=== PATIENT | female | born 1950 | race Caucasian/White ===

== ENCOUNTER → 2017-01-11 | Outpatient (CLI) | payer OTHER ==
--- NOTE | 2017-01-11 08:49 | KCIC ---
ACUTE ABDOMEN SERIES History: Generalized abdominal pain, changes in bowels, symptoms since July worse the last 3 weeks Comparison: None. Findings: Single view of the chest and single supine and upright views of the abdomen are submitted. There is no infiltrate, pleural fluid, pneumothorax. Cardiac silhouette is considered within normal limits given technique. There is no free air. There is an overall nonobstructive bowel gas pattern. There is variable retained stool throughout the colon. Impression: 1. There is variable retained stool throughout the colon, nonobstructive bowel gas pattern. Electronically signed by: Navneet Narayanan MD (01/11/2017 8:45 AM)
== END | disposition home or self-care (01) ==
LOC: KCIC 08:09
PROVIDERS: ATTEND Family Medicine
DX: R10.84 Generalized abdominal pain (principal)
CPT/HCPCS: 74022

== ENCOUNTER → 2020-01-03 | Outpatient (CLI) | payer MEDICARE ==
[~2020-01-03] MED LIST: REGADENOSON 0.4 MG/5 ML DISP.SYRIN. IV ONE
--- NOTE | 2020-01-03 11:55 | CARD ---
MR#: [id number] Date of Study: 01/03/2020 Ordering Physician: ASHWIN ELLIS, Referring Physician: ASHWIN ELLIS Tech: Naomy Rizo RDCS APPROVED REPORT EXAM: Two-dimensional and M-mode echocardiogram with Doppler and color Doppler. Other Information Quality : Good INDICATION Pre-Op 2D DIMENSIONS RVDd2.6 (2.9-3.5cm)Left Atrium(2D)3.6 (1.6-4.0cm) IVSd0.8 (0.7-1.1cm)Aortic Root(2D)2.7 (2.0-3.7cm) LVDd4.3 (3.9-5.9cm)LVOT Diameter1.8 (1.8-2.4cm) PWd0.8 (0.7-1.1cm)LVDs3.1 (2.5-4.0cm) FS (%) 27.4 %SV44.0 ml LVEF(%)53.5 (>50%) Aortic Valve AoV Peak Farhat.126.1cm/sAoV VTI25.5cm AO Peak GR.6.4mmHgLVOT Peak Farhat.95.3cm/s AO Mean GR.3mmHgAVA (VMAX)1.95cm2 RJ (VTI)2.10cm2 Mitral Valve MV E Yogjdlos00.3cm/sMV DECEL XMUY058vq MV A Xjrvuutt80.1cm/sE/A Ratio1.1 Tricuspid Valve TR P. Pztgtrmm863re/sRAP WIEMHZRX3ehLp TR Peak Gr.85fdNtLUMY74kaRf Pulmonary Vein S1 Cdqyfrlb72.9cm/sD2 Yylwirgi38.4cm/s LEFT VENTRICLE The left ventricle is normal size. There is normal left ventricular wall thickness. The left ventricu lar systolic function is normal and the ejection fraction is within normal range. The Ejection Fracti on is 55%. There is normal LV segmental wall motion. The left ventricular diastolic function and fill ing is normal for age. RIGHT VENTRICLE The right ventricle is normal size. The right ventricular systolic function is normal. ATRIA The left atrium size is normal. The right atrium is mildly dilated. The interatrial septum is intact with no evidence for an atrial septal defect or patent foramen ovale as noted on 2-D or Doppler imagi ng. AORTIC VALVE The aortic valve is calcified but opens well. Doppler and Color Flow revealed no significant aortic r egurgitation. There is no significant aortic valvular stenosis. MITRAL VALVE The mitral valve is calcified but opens well. There is no evidence of mitral valve prolapse. There is no mitral valve stenosis. Doppler and Color-flow revealed trace mitral regurgitation. TRICUSPID VALVE The tricuspid valve is normal in structure and function. Doppler and Color Flow revealed mild tricusp id regurgitation. The PA pressure was estimated at 29 mmHg. There is no tricuspid valve stenosis. PULMONIC VALVE The pulmonic valve is not well visualized. Doppler and Color Flow revealed trace pulmonic valvular re gurgitation. There is no pulmonic valvular stenosis. GREAT VESSELS The aortic root is normal in size. The ascending aorta is normal in size. The IVC is normal in size a nd collapses >50% with inspiration. PERICARDIAL EFFUSION There is no evidence of significant pericardial effusion. Critical Notification Critical Value: No <Conclusion> The left ventricular systolic function is normal and the ejection fraction is within normal range. Th e Ejection Fraction is 55%. There is normal LV segmental wall motion. Signed by : Nikko Schmitz, Electronically Approved : 01/03/2020 11:54:50
--- NOTE | 2020-01-03 13:26 | RAD ---
MR#: [id number] Date of Study: 01/03/2020 Ordering Physician: ASHWIN ELLIS, Referring Physician: JOSUÉ VANN Tech: RT Radha Lawrence) (N) APPROVED REPORT Test Type: Pharmacological Stress Nurse/Tech: Isa Omalley R.N. Test Indications: c/p Cardiac History: No known cardiac Medications: See Electronic Medical Record Medical History: See Electronic Medical Record Resting ECG: SR Resting Heart Rate: 61 bpm Resting Blood Pressure: 121/60mmHg Pretest Chest Pain: No chest pain Nurse/Tech Notes S1S2, lungs CTA Consent: The procedure was explained to the patient in lay terms. Informed consent was witnessed. Tr eout was entered into [facility]. History and Stress Test performed by RT Radha Lawrence) (N) Pharm. Details Pharmacologic stress testing was performed using 0.4mg per 5ml of regadenoson given intravenously ove r 7-10 seconds. Stress Symptoms SOB, chest tightness scale 5/10 that resolved by the end of the recovery period. h/a POST EXERCISE Reason for Termination: Infusion complete Max HR: 105 bpm Max Blood Pressure: 111/47mmHg Blood Pressure response to exercise: Normal blood pressure response during stress. Heart Rate response to exercise: wnl Chest Pain: Yes. see above note Arrhythmia: Yes. ST Change: No. INTERPRETATION Stress EKG Conclusion: The resting EKG shows a sinus rhythm with mild nonspecific ST segment changes. The stress EKG showed no significant changes from baseline. No EKG evidence of stress-induced ischemia. Imaging Protocol IMAGE PROTOCOL: Rest Tc-99m/stress Tc-99m 1 day Rest: Stress: Viability: Radiopharm.Tc99m DskiacjqgLg33n Sestamibi Dose10.4mCi 33mCi Duration 15min. 10min. Img Date 01/03/2020 01/03/2020 Inj-Img Umnx18vmv. 60min. Rest Admin Site:IV - Right AntecubitalAdministrator:RT Radha Lawrence)(N) Stress Admin Site: IV - Right AntecubitalAdministrator: Camila Quintero, NMTCB, ARRT (R)(N) STRESS DATA End Diast. Vol.63.0mlAv. Heart Rate76.0bpm End Syst. Vol.5.0mlCO Index BSA0.0L/min Myocardial Tppb444.0gEject. Zfoocosd37.0% Stress Rates Pk. Fill Rate3.99EDV/secLVtime Pk. Fill 110.49msec Pk. Empty Rate4.88ESV/secLVtime Pk. Nvlwz328.15msec 07/26 Pk. Fill2.40EDV/sec Stress Scores Regional WT0.00Summed WT0.00 Regional WM0.00Summed WM1.00 LV Perfusion The stress scans show no significant defects. The rest scans show no significant defects. Nuclear imaging shows no reversible ischemia or infarct. Wall Motion Normal left ventricular systolic function with no wall motion abnormalities, an ejection fraction of greater than 70% and a TID of 0.88. LV Perf. Quant 17 Seg. SSS0.00 17 Seg. SRS1.00 17 Seg. SDS0.00 Stress Defect Extent (% LAD)0.00Rest Defect Extent (% LAD)0.00Rev. Defect Extent (% LAD)0.00 Stress Defect Extent (% LCX) 0.00Rest Defect Extent (% LCX)7.50Rev. Defect Extent (% LCX)0.00 Stress Defect Extent (% RCA)0.00Rest Defect Extent (% RCA)0.00Rev. Defect Extent (% RCA)0.00 Stress Defect Extent (% BRIAN)0.00Rest Defect Extent (% BRIAN)1.70Rev. Defect Extent (% BRIAN)0.00 Conclusion 1. No EKG evidence of stress-induced ischemia. 2. Nuclear imaging shows no reversible ischemia or infarct. 3. Normal left ventricular systolic function with no regional wall motion abnormalities, and ejection fraction of greater than 70% and a TID of 0.88. 4. Low risk Lexiscan nuclear stress test. Signed by : Keith Taylor MD Electronically Approved : 01/03/2020 13:25:54
== END ==
LOC: NM 10:20
PROVIDERS: ATTEND Internal Medicine Cardiovascular Disease
DX: Z01.810 Encounter for preprocedural cardiovascular examination (principal); I08.3 Combined rheumatic disorders of mitral, aortic and tricuspid valves
CPT/HCPCS: 78452; 93017; 93306; A9500; J2785

== ENCOUNTER → 2021-09-01 | Outpatient (CLI) | payer MEDICARE ==
--- NOTE | 2021-09-01 17:17 | CARD ---
MR#: [id number] Date of Study: 09/01/2021 Ordering Physician: ASHWIN ELLIS, Referring Physician: ASHWIN ELLIS, Tech: Mary Carmen Briscoe, [facility] APPROVED REPORT EXAM: Two-dimensional and M-mode echocardiogram with Doppler and color Doppler. Other Information Quality : AverageHR: 66bpm INDICATION Dyspnea 2D DIMENSIONS Left Atrium(2D)2.7 (1.6-4.0cm)IVSd0.9 (0.7-1.1cm) Aortic Root(2D)2.8 (2.0-3.7cm)LVDd4.6 (3.9-5.9cm) LVOT Diameter2.1 (1.8-2.4cm)PWd0.9 (0.7-1.1cm) LVDs2.8 (2.5-4.0cm)FS (%) 37.8 % SV65.1 ml Aortic Valve AoV Peak Farhat.110.8cm/sAoV VTI24.2cm AO Peak GR.4.9mmHgLVOT Peak Farhat.88.5cm/s LVOT VTI 17.99cmAO Mean GR.3mmHg RJ (VMAX)2.83ow7VFH (VTI)2.48cm2 Mitral Valve MV E Xjjijplr21.2cm/sMV DECEL RKPA188uv MV A Oqtzztzo62.5cm/sMV E Mean Gr.0mmHg MV OZQ03uiF/A Ratio1.0 MVA (PHT)4.18cm2 TDI E/Lateral E'6.6E/Medial E'6.0 Pulmonary Valve PV Peak Nmhqejjg73.3cm/sPV Peak Grad.2mmHg Tricuspid Valve TR P. Puyizlpf163vk/sRAP JHUBZWNC9mkEq TR Peak Gr.22ytHmIVEN58ntPj Pulmonary Vein S1 Uphykoit86.0cm/sD2 Qcuqyvfs64.3cm/s PVa oucipjbf92fkok LEFT VENTRICLE The left ventricle is normal size. There is normal left ventricular wall thickness. The left ventricu lar systolic function is normal and the ejection fraction is within normal range. The Ejection Fracti on is 50-55%. There is normal LV segmental wall motion. The left ventricular diastolic function and f illing is normal for age. RIGHT VENTRICLE The right ventricle is normal size. There is normal right ventricular wall thickness. The right ventr icular systolic function is normal. ATRIA The left atrium size is normal. The right atrium is borderline dilated. The interatrial septum is int act with no evidence for an atrial septal defect or patent foramen ovale as noted on 2-D or Doppler i maging. AORTIC VALVE The aortic valve is normal in structure and function. Doppler and Color Flow revealed no significant aortic regurgitation. There is no significant aortic valvular stenosis. Calculated aortic valve area is 2.02 cm2 with maximum pressure gradient of 6 mmHg and mean pressure gradient of 3 mmHg. MITRAL VALVE The mitral valve is normal in structure and function. There is no evidence of mitral valve prolapse. There is no mitral valve stenosis. Doppler and Color-flow revealed trace mitral regurgitation. TRICUSPID VALVE The tricuspid valve is normal in structure and function. Doppler and Color Flow revealed trace tricus pid regurgitation with an estimated PAP of 33 mmHg. There is no tricuspid valve stenosis. PULMONIC VALVE The pulmonic valve is not well visualized. Doppler and Color Flow revealed trace to mild pulmonic blake vular regurgitation. GREAT VESSELS The aortic root is normal in size. The IVC is normal in size and collapses >50% with inspiration. PERICARDIAL EFFUSION There is no evidence of significant pericardial effusion. Critical Notification Critical Value: No <Conclusion> The left ventricle is normal size. The left ventricular systolic function is normal and the ejection fraction is within normal range. The Ejection Fraction is 50-55%. Doppler and Color Flow revealed no significant aortic regurgitation. There is no significant aortic valvular stenosis. Doppler and Color-flow revealed trace mitral regurgitation. Doppler and Color Flow revealed trace tricuspid regurgitation with an estimated PAP of 33 mmHg. Signed by : Keith Taylor MD Electronically Approved : 09/01/2021 17:16:23
== END ==
LOC: ECHO 10:39
PROVIDERS: ATTEND Internal Medicine Cardiovascular Disease
DX: I37.1 Nonrheumatic pulmonary valve insufficiency (principal); R06.09 Other forms of dyspnea
CPT/HCPCS: 93306; C8929

== ENCOUNTER 2021-12-05 10:49 | Emergency (ER) | payer MEDICARE ==
[~2021-12-05] VITALS: Ht 167.6 cm; Wt 55.5 kg
[2021-12-05] MEDS ORDERED: IOHEXOL 350 MG/ML 100 ML VIAL. IV ONE (12:00)
[2021-12-05] MEDS ORDERED: CONTRAST GIVEN. MC PRN (12:00)
--- NOTE | 2021-12-05 12:05 | EKG ---
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
--- NOTE | 2021-12-05 12:05 | RAD ---
EXAM: Chest, single view. HISTORY: Chest pain. COMPARISON: None. FINDINGS: A frontal view of the chest is obtained. There is no infiltrate, pleural effusion or pneumo thorax. The heart is normal in size. There is calcified biapical pleural plaque. IMPRESSION: No acute pulmonary finding. Electronically signed by: Maranda Alvarado MD (12/05/2021 12:03 PM) [id number]
[2021-12-05 12:13] LABS: BASO # 0.1 x10^3/uL (0.0-0.2); BASO % 1 % (0-3); EOS # 0.1 x10^3/uL (0.0-0.7); EOS % 1 % (0-3); HEMATOCRIT 39.1 % (36.0-47.0); HEMOGLOBIN 13.1 g/dL (12.0-15.5); LYMPH # 1.2 x10^3/uL (1.0-4.8); LYMPH % 14 % (24-48); MEAN CORPUSCULAR HEMOGLOBIN 30 pg (25-35); MEAN CORPUSCULAR HGB CONC 33 g/dL (31-37); MEAN CORPUSCULAR VOLUME 91 fL (79-100); MONO # 0.8 x10^3/uL (0.0-1.1); MONO % 9 % (0-9); NEUT # 6.8 x10^3/uL (1.8-7.7); NEUT % 76 % (31-73); PLATELET COUNT 167 x10^3/uL (140-400); RED BLOOD COUNT 4.33 x10^6/uL (3.50-5.40); RED CELL DISTRIBUTION WIDTH 13.3 % (11.5-14.5)
[2021-12-05 12:23] LABS: CALCIUM 9.2 mg/dL (8.5-10.1); CREATININE 0.8 mg/dL (0.6-1.0); GFR 70.7; POTASSIUM 3.9 mmol/L (3.5-5.1)
[2021-12-05 12:29] LABS: ALBUMIN 3.5 g/dL (3.4-5.0); ALBUMIN/GLOBULIN RATIO 0.9 (1.0-1.7); TOTAL BILIRUBIN 0.9 mg/dL (0.2-1.0); TOTAL PROTEIN 7.3 g/dL (6.4-8.2)
--- NOTE | 2021-12-05 12:59 | RAD ---
EXAM: Head CT without contrast. HISTORY: Dizziness. TECHNIQUE: Computed tomographic images of the head were obtained without contrast. *One or more of the following individualized dose reduction techniques were utilized for this examina tion: 1. Automated exposure control. 2. Adjustment of the mA and/or kV according to patient size. 3. Use of iterative reconstruction technique. COMPARISON: None. FINDINGS: There is no acute or subacute extra-axial or intraparenchymal hemorrhage. There is no mass effect or midline shift. There is no hydrocephalus. There are areas of decreased attenuation within the cerebral white matter, nonspecific and likely rel ated to chronic small vessel disease. There is a small focus of hyperdensity within the anterior limb of the left internal capsule, also likely due to chronic white matter disease. The visualized portions of the orbits, paranasal sinuses and mastoid air cells are unremarkable. No s uspicious calvarial lesion is seen. IMPRESSION: No acute intracranial finding. MRI is more sensitive for acute infarction. Electronically signed by: Maranda Alvarado MD (12/05/2021 12:57 PM) [id number]
--- NOTE | 2021-12-05 13:04 | RAD ---
CTA Chest with contrast: Clinical History: Reason: Chest pain with SOA. Axial helical images of the chest were obtained after the administration of 100 cc of IV Omnipaque 35 0 and timed appropriately for a pulmonary arterial study. Conventional axial reconstruction was perf ormed in addition to coronal, sagittal and bilateral oblique MIP (maximum intensity projection). Thi s study was ordered to detect possible pulmonary embolism. There are no filling defects to suggest pulmonary embolism. The lungs and pleural margins are clear. There is no mediastinal or hilar lymphadenopathy. The thoracic aorta appears normal. Impression: 1. No evidence of pulmonary embolism. 2. No significant findings. PQRS Compliance Statement: One or more of the following individualized dose reduction techniques were utilized for this examinat ion: 1. Automated exposure control 2. Adjustment of the mA and/or kV according to patient size 3. Use of iterative reconstruction technique Electronically signed by: Rudy Hightower III, MD (12/05/2021 1:02 PM) [facility]
--- NOTE | 2021-12-05 13:41 | PHYS DOC ---
Past Medical History Past Medical History: Cancer, Hypothyroid Additional Past Medical Histor: bladder ca, osteoporosis, reynauds, tendonitis Past Surgical History: Cancer Surgery, , Tubal ligation, Other Additional Past Surgical Histo: breast biopsy, cystoscopy, bladder tumor removal x2 Smoking Status: Never Smoker Alcohol Use: None General Adult EDM: Chief Complaint: CHEST PAIN HPI: HPI: Patient is a 71-year-old female who presents today with chest pain. Patient states that around 1015 this morning while at [employer] she experienced substernal chest pain that radiated to the right side of her neck and her right ear, she stated that she did have shortness of breath with the pain as well as nausea, she said she had the pain for approximately 30 to 45 minutes and then the pain went away. Patient currently is pain-free. Patient states she has a past medical history of bladder cancer for which she is followed on outpatient basis with her urologist, she also has seen Dr. Lange in the past for similar episode that she had approximately 2 to 3 years ago. She said she has had an echocardiogram recently which was negative for any acute process. Patient states that she was recently seen by her primary care physician and diagnosed with tendinitis in her left foot she was placed in a walking boot and instructed to take it easy over the next couple of days and not do a lot of walking. Patient states she has decreased her activity and been sitting in her recliner with her feet up more frequently over the last couple of days. Review of Systems: Review of Systems: Constitutional: Denies fever or chills. [] Eyes: Denies change in visual acuity. [] HENT: Denies nasal congestion or sore throat. [] Respiratory: Denies cough or shortness of breath. [] Cardiovascular: Chest pain denies edema. [] GI: Denies abdominal pain, nausea, vomiting, bloody stools or diarrhea. [] : Denies dysuria. [] Musculoskeletal: Denies back pain or joint pain. [] Integument: Denies rash. [] Neurologic: Denies headache, focal weakness or sensory changes. [] Endocrine: Denies polyuria or polydipsia. [] Lymphatic: Denies swollen glands. [] Psychiatric: Denies depression or anxiety. [] Heart Score: C/O Chest Pain: Yes HEART Score for Chest Pain: HEART Score for Chest Pain Response (Comments) Value History Moderately Suspicious 1 ECG Normal 0 Age > 65 2 Risk Factors No Risk Factors 0 Troponin < Normal Limit 0 Total 3 Risk Factors: Risk Factors: DM, Current or recent (<one month) smoker, HTN, HLP, family history of CAD, obesity. Risk Scores: Score 0 - 3: 2.5% MACE over next 6 weeks - Discharge Home Score 4 - 6: 20.3% MACE over next 6 weeks - Admit for Clinical Observation Score 7 - 10: 72.7% MACE over next 6 weeks - Early Invasive Strategies Current Medications: Current Medications Medications (Trade) Dose Ordered Sig/Lacy Start Time Stop Time Status Last Admin Dose Admin Info (CONTRAST GIVEN -- Rx MONITORING) 1 each PRN DAILY PRN 12/05/21 12:00 12/07/21 11:59 Iohexol (Omnipaque 350 Mg/ml) 100 ml 1X ONCE 12/05/21 12:00 12/05/21 12:01 DC 12/05/21 12:00 100 ML Allergies: Allergies: Allergies Coded Allergies Type Severity Reaction Last Updated Verified Penicillins Allergy Intermediate Rash 01/03/20 Yes Sulfa (Sulfonamide Antibiotics) Allergy Intermediate Rash 01/03/20 Yes calamine Allergy Intermediate Rash 01/03/20 Yes meloxicam Allergy Intermediate Rash 01/03/20 No prednisone Allergy Intermediate 01/03/20 No naproxen Adverse Reaction Intermediate FLUSHING 01/03/20 No Physical Exam: PE: Constitutional: Well developed, well nourished, no acute distress, non-toxic appearance. [] HENT: Normocephalic, atraumatic, bilateral external ears normal, oropharynx moist, no oral exudates, nose normal. [] Eyes: PERRLA, EOMI, conjunctiva normal, no discharge. [] Neck: Normal range of motion, no tenderness, supple, no stridor. [] Cardiovascular:Heart rate regular rhythm, no murmur [] Lungs & Thorax: Bilateral breath sounds clear to auscultation [] Abdomen: Bowel sounds normal, soft, no tenderness, no masses, no pulsatile masses. [] Skin: Warm, dry, no erythema, no rash. [] Back: No tenderness, no CVA tenderness. [] Extremities: Left foot in a walking boot, peripheral pulses are 2+ no edema noted in her legs Neurologic: Alert and oriented X 3, normal motor function, normal sensory function, no focal deficits noted. [] Psychologic: Affect normal, judgement normal, mood normal. [] Current Patient Data: Labs: Laboratory Tests Test 12/05/21 11:03 12/05/21 14:15 White Blood Count 9.0 x10^3/uL Red Blood Count 4.33 x10^6/uL Hemoglobin 13.1 g/dL Hematocrit 39.1 % Mean Corpuscular Volume 91 fL Mean Corpuscular Hemoglobin 30 pg Mean Corpuscular Hemoglobin Concent 33 g/dL Red Cell Distribution Width 13.3 % Platelet Count 167 x10^3/uL Neutrophils (%) (Auto) 76 % Lymphocytes (%) (Auto) 14 % Monocytes (%) (Auto) 9 % Eosinophils (%) (Auto) 1 % Basophils (%) (Auto) 1 % Neutrophils # (Auto) 6.8 x10^3/uL Lymphocytes # (Auto) 1.2 x10^3/uL Monocytes # (Auto) 0.8 x10^3/uL Eosinophils # (Auto) 0.1 x10^3/uL Basophils # (Auto) 0.1 x10^3/uL Sodium Level 143 mmol/L Potassium Level 3.9 mmol/L Chloride Level 104 mmol/L Carbon Dioxide Level 29 mmol/L Anion Gap 10 Blood Urea Nitrogen 23 mg/dL Creatinine 0.8 mg/dL Estimated GFR (Cockcroft-Gault) 70.7 BUN/Creatinine Ratio 29 Glucose Level 91 mg/dL Calcium Level 9.2 mg/dL Total Bilirubin 0.9 mg/dL Aspartate Amino Transf (AST/SGOT) 16 U/L Alanine Aminotransferase (ALT/SGPT) 15 U/L Alkaline Phosphatase 63 U/L Troponin I High Sensitivity 5 ng/L < 4 ng/L HU-Cbg-L-Type Natriuretic Peptide 346 pg/mL Total Protein 7.3 g/dL Albumin 3.5 g/dL Albumin/Globulin Ratio 0.9 Current Medications Medications (Trade) Dose Ordered Sig/Lacy Route PRN Reason Start Time Stop Time Status Last Admin Dose Admin Iohexol (Omnipaque 350 Mg/ml) 100 ml 1X ONCE IV 12/05/21 12:00 12/05/21 12:01 DC 12/05/21 12:00 Info (CONTRAST GIVEN -- Rx MONITORING) 1 each PRN DAILY PRN MC SEE COMMENTS 12/05/21 12:00 12/05/21 15:03 DC Laboratory Tests Test 12/05/21 11:03 White Blood Count 9.0 x10^3/uL (4.0-11.0) Red Blood Count 4.33 x10^6/uL (3.50-5.40) Hemoglobin 13.1 g/dL (12.0-15.5) Hematocrit 39.1 % (36.0-47.0) Mean Corpuscular Volume 91 fL (79-100) Mean Corpuscular Hemoglobin 30 pg (25-35) Mean Corpuscular Hemoglobin Concent 33 g/dL (31-37) Red Cell Distribution Width 13.3 % (11.5-14.5) Platelet Count 167 x10^3/uL (140-400) Neutrophils (%) (Auto) 76 % (31-73) H Lymphocytes (%) (Auto) 14 % (24-48) L Monocytes (%) (Auto) 9 % (0-9) Eosinophils (%) (Auto) 1 % (0-3) Basophils (%) (Auto) 1 % (0-3) Neutrophils # (Auto) 6.8 x10^3/uL (1.8-7.7) Lymphocytes # (Auto) 1.2 x10^3/uL (1.0-4.8) Monocytes # (Auto) 0.8 x10^3/uL (0.0-1.1) Eosinophils # (Auto) 0.1 x10^3/uL (0.0-0.7) Basophils # (Auto) 0.1 x10^3/uL (0.0-0.2) Sodium Level 143 mmol/L (136-145) Potassium Level 3.9 mmol/L (3.5-5.1) Chloride Level 104 mmol/L (98-107) Carbon Dioxide Level 29 mmol/L (21-32) Anion Gap 10 (6-14) Blood Urea Nitrogen 23 mg/dL (7-20) H Creatinine 0.8 mg/dL (0.6-1.0) Estimated GFR (Cockcroft-Gault) 70.7 BUN/Creatinine Ratio 29 (6-20) H Glucose Level 91 mg/dL (70-99) Calcium Level 9.2 mg/dL (8.5-10.1) Total Bilirubin 0.9 mg/dL (0.2-1.0) Aspartate Amino Transferase (AST) 16 U/L (15-37) Alanine Aminotransferase (ALT) 15 U/L (14-59) Alkaline Phosphatase 63 U/L (46-116) Troponin I High Sensitivity 5 ng/L (4-50) WQ-Gru-O-Type Natriuretic Peptide 346 pg/mL (0-124) H Total Protein 7.3 g/dL (6.4-8.2) Albumin 3.5 g/dL (3.4-5.0) Albumin/Globulin Ratio 0.9 (1.0-1.7) L Laboratory Tests 12/05/21 11:03 Laboratory Tests 12/05/21 11:03 Vital Signs: Vital Signs Date Time Temp Pulse Resp B/P (MAP) Pulse Ox O2 Delivery O2 Flow Rate FiO2 12/05/21 14:55 78 21 140/63 (88) 99 12/05/21 14:20 74 20 124/65 (84) 99 12/05/21 14:00 72 16 130/66 (87) 99 12/05/21 13:24 75 18 142/71 (94) 100 Room Air 12/05/21 13:00 92 14 137/75 (95) 99 12/05/21 12:00 72 13 107/58 (74) 96 12/05/21 11:09 98.2 78 16 124/67 (86) 100 Room Air 98.2 Vital Signs Date Time Temp Pulse Resp B/P (MAP) Pulse Ox O2 Delivery O2 Flow Rate FiO2 12/05/21 13:24 75 18 142/71 (94) 100 Room Air 12/05/21 11:09 98.2 98.2 EKG: EKG: EKG done at [address] Juárez at 11:00 shows sinus rhythm with a leftward axis deviation at a heart rate of 79 with a WA interval of 122 ms with a QTC of 395 ms no STEMI [] Radiology/Procedures: Radiology/Procedures: REASON: dizziness PROCEDURE: CT HEAD WO CONTRAST EXAM: Head CT without contrast. HISTORY: Dizziness. TECHNIQUE: Computed tomographic images of the head were obtained without contras t. *One or more of the following individualized dose reduction techniques were utilized for this examination: 1. Automated exposure control. 2. Adjustment of the mA and/or kV according to patient size. 3. Use of iterative reconstruction technique. COMPARISON: None. FINDINGS: There is no acute or subacute extra-axial or intraparenchymal hemorrhage. There is no mass effect or midline shift. There is no hydrocephalus. There are areas of decreased attenuation within the cerebral white matter, nonspecific and likely related to chronic small vessel disease. There is a small focus of hyperdensity within the anterior limb of the left internal capsule, also likely due to chronic white matter disease. The visualized portions of the orbits, paranasal sinuses and mastoid air cells are unremarkable. No suspicious calvarial lesion is seen. IMPRESSION: No acute intracranial finding. MRI is more sensitive for acute infarction. Electronically signed by: Maranda Alvarado MD (12/05/2021 12:57 PM) [id number] REASON: Chest pain with SOA PROCEDURE: CT ANGIOGRAPHY CHEST CTA Chest with contrast: Clinical History: Reason: Chest pain with SOA. Axial helical images of the chest were obtained after the administration of 100 cc of IV Omnipaque 350 and timed appropriately for a pulmonary arterial study. Conventional axial reconstruction was performed in addition to coronal, sagittal and bilateral oblique MIP (maximum intensity projection). This study was ordered to detect possible pulmonary embolism. There are no filling defects to suggest pulmonary embolism. The lungs and pleural margins are clear. There is no mediastinal or hilar lymphadenopathy. The thoracic aorta appears normal. Impression: 1. No evidence of pulmonary embolism. 2. No significant findings. PQRS Compliance Statement: One or more of the following individualized dose reduction techniques were utilized for this examination: 1. Automated exposure control 2. Adjustment of the mA and/or kV according to patient size 3. Use of iterative reconstruction technique Electronically signed by: Rudy Hightower III, MD (12/05/2021 1:02 PM) [facility] REASON: chest pain PROCEDURE: PORTABLE CHEST 1V EXAM: Chest, single view. HISTORY: Chest pain. COMPARISON: None. FINDINGS: A frontal view of the chest is obtained. There is no infiltrate, pleural effusion or pneumothorax. The heart is normal in size. There is calcified biapical pleural plaque. IMPRESSION: No acute pulmonary finding. Electronically signed by: Maranad Alvarado MD (12/05/2021 12:03 PM) [id number] [] Course & Med Decision Making: Course & Med Decision Making Pertinent Labs and Imaging studies reviewed. (See chart for details) 1345 I reviewed case with Dr. Curry our hospitalist and he has advised to repeat a troponin 3 hours after the first 1 and if it is negative due to the fact that she had a negative CTA she can go home and follow-up on a regular basis with her primary care physician or Dr. Lange for whom she has seen in the past. Patient chart was reviewed and I did note that August 2021 echocardiogram was normal. I did explain the plan of care to the patient and they are agreeable with following up on an outpatient basis if the second troponin is negative. 1449-second troponin result is back and it is less than 4 patient will be discharged home with strict return precautions to come back should she have any chest pain, increased shortness of breath, sweats, nausea and vomiting, or development of a fever or swelling in her legs. Patient is instructed to follow-up with Dr. Lange or her primary care physician tomorrow for further evaluation and management of her chest pain that she had early this morning. Patient verbalized understanding of this and agreeable with the plan of care. Dragon Disclaimer: Dragon Disclaimer: This electronic medical record was generated, in whole or in part, using a voice recognition dictation system. Departure Departure Impression: Primary Impression: Chest pain Qualified Codes: R07.9 - Chest pain, unspecified Disposition: HOME / SELF CARE / HOMELESS Condition: STABLE Referrals: LUCILLE STANLEY D.O. (PCP) Patient Instructions: Chest Pain (Nonspecific) Additional Instructions: Continue all your home medications as previously prescribed Follow-up with your primary care physician and Dr. Lange tomorrow by phone for further evaluation and management of your chest pain Return here to the emergency department should you have recurrent chest pain, increased shortness of breath, increased work of breathing, fever, change in mental status, or swelling of your legs. JERAD WARREN WOOD CHOPPER December 05, 2021 13:41
[2021-12-05 14:55] VITALS: BP 140/63
== END 2021-12-05 15:03 | disposition home or self-care (01) ==
LOC: ER 10:49
DX: R07.2 Precordial pain (principal); E03.9 Hypothyroidism, unspecified; Z85.51 Personal history of malignant neoplasm of bladder
CPT/HCPCS: 36415; 70450; 71045; 71275; 80053; 83880; 84484; 85025; 93005; 99285; Q9967